=== PATIENT | female | born 1985 | race African-American/Black ===

== ENCOUNTER 2019-09-21 00:39 | Emergency (ER) | payer MEDICAID, SELFPAY ==
--- NOTE | ~2019-09-21 | XR_ITS ---
EXAMINATION: XR foot RT 2V DATE: 09/21/2019 01:11 INDICATION: Right foot pain. TECHNIQUE: 2 views of right foot were obtained. COMPARISON: None. FINDINGS: There is mild hallux valgus. No fracture. There is mild osteoarthritis of first metatarsoph alangeal joint and middle naviculocuneiform joint. IMPRESSION: 1. Mild polyarticular osteoarthritis. 2. Mild hallux valgus. Reviewed, dictated and finalized at location A.
[2019-09-21 00:42] VITALS: BP 145/79; PULSE 81; RESP 21; TEMP 36.2; O2SAT 100
[2019-09-21 00:52] VITALS: BP 145/79; PULSE 81; RESP 18; TEMP 36.2; O2SAT 100
--- NOTE | 2019-09-21 00:59 | ED.LOWEXIN ---
HPI - Extremity Injury (Lower) General Chief Complaint: Extremity Injury, Lower Stated Complaint: TOE INJURY Time Seen by Provider: 09/21/19 00:58 History of Present Illness HPI Narrative: Pt c/o right foot/toes pain after running into a table. Denies any other injuries. Onset (ago): hour(s) (1) Type of Injury: blunt Place: home Severity: moderate Exacerbating factors: weight bearing, movement and palpation Context: direct blow Other symptoms: none Review of Systems Review of Systems: All systems reviewed & are unremarkable except as noted in HPI and below [facility] Social History Social History Gender identity (if verbalized by the patient): Female Exam Const: General: no acute distress HENMT: Head: normal to inspection Resp: Effort & Inspection: normal respiratory effort Extrem: Other: RIGHT FOOT TENDERNESS ON PALPATION. NEUROVASC INTACT. Course Vital Signs Vital signs: Vital Signs Temperature 36.2 C L 09/21/19 00:42 Pulse Rate 81 09/21/19 00:42 Respiratory Rate 21 H 09/21/19 00:42 Blood Pressure 145/79 H 09/21/19 00:42 Pulse Oximetry 100 09/21/19 00:42 Temperature 36.2 C L 09/21/19 00:52 Pulse Rate 81 09/21/19 00:52 Respiratory Rate 18 09/21/19 00:52 Blood Pressure 145/79 H 09/21/19 00:52 Pulse Oximetry 100 09/21/19 00:52 Discharge Plan Discharge Clinical Impression: Contusion of foot Qualifiers: Encounter type: initial encounter Laterality: right Qualified Code(s): S90.31XA - Contusion of right foot, initial encounter Patient Disposition: Home, Self-Care Condition: Stable Instructions: Antibiotic Form Follow-up/Referrals: PHYSICIAN,NUCLEAR ENGINEERING TECHNICIAN [Primary Care Provider] - Time of Disposition: 01:23
[2019-09-21 01:53] VITALS: BP 140/82; PULSE 84; RESP 18; O2SAT 100
== END 2019-09-21 02:02 | disposition home or self-care (01) ==
PROVIDERS: Emergency Provider Emergency Medicine
DX: S90.31XA Contusion of right foot, initial encounter (principal); W22.03XA Walked into furniture, initial encounter
CPT/HCPCS: 73620; 99283